=== PATIENT | male | born 1960 | race Caucasian/White ===

== ENCOUNTER 2018-03-04 13:44 | Emergency (ER) | payer MEDICARE, SELFPAY ==
[2018-03-04 14:21] VITALS: BP 119/73; PULSE 89; RESP 18; TEMP 36.7; O2SAT 98
[2018-03-04] MEDS: Lidocaine 5% Patch 1 PATCH TP (15:17)
[2018-03-04] MEDS: Ibuprofen 800 MG TAB PO (15:17)
[2018-03-04] MEDS: Acetaminophen 500 MG TAB 1000 MG PO (15:17)
--- NOTE | 2018-03-04 15:29 | DI.RAD_ITS ---
SYMPTOMS/DIAGNOSIS: LEFT CHEST PAIN, LOWER RIB PAIN CHEST X-RAY, PA AND LATERAL: No priors. The heart size and pulmonary vasculature are within normal limits. The lungs are clear. No effusions or pneumothoraces are identified. No definite fractures identified. There is a lucency seen through the posterior aspect of the left 9th rib, which may be due to overlying shadows. Mild degenerative changes are seen in the spine. IMPRESSION: No definite acute pulmonary process. Please see the above discussion for complete details.
--- NOTE | 2018-03-04 15:51 | DI.VRAD_ITS ---
EXAM: XR Chest, 2 Views EXAM DATE/TIME: 03/04/2018 3:26 PM CLINICAL HISTORY: 57 years old, male; Pain; Chest pain; Left-sided chest pain; Patient HX: Left chest pain, lower rib pain TECHNIQUE: XR of the chest, 2 views. COMPARISON: No relevant prior studies available. FINDINGS: Lungs: Unremarkable. No consolidation. Pleural space: Unremarkable. No pleural effusion. No pneumothorax. Heart/Mediastinum: Unremarkable. No cardiomegaly. Bones/joints: There may be nondisplaced fracture of the posterior left ninth rib. IMPRESSION: There may be nondisplaced fracture of the posterior left ninth rib. Dictated and Authenticated by: Olya Herring MD. Ordering:CAROLINA ELLINGTON MD
--- NOTE | 2018-03-04 16:53 | ED.GENADUL_ITS ---
Discharge Plan Disposition Patient Disposition: HOME Condition: Good Discharge Details Chief Complaint: Chest/Rib Clinical Impression: Fracture of rib Primary Care Provider: Armani Samuels ED Provider: Oneil Talbot Home Meds and New Rx's Prescriptions: New acetaminophen [Mapap Extra Strength] 500 MG tablet 1,000 mg PO Q6H 5 Days Qty: 60 RF: 0 lidocaine [Lidoderm] 1 PATCH patch 1 ea Topical Q24H Qty: 4 RF: 0 ibuprofen [Motrin IB] 200 MG tablet 600 mg PO Q6H 5 Days Qty: 60 RF: 0 Discharge Instructions Instructions: Rib Fracture (ED) Additional Instructions: Please take the Tylenol, Motrin and Lidoderm patches as directed. You have a small fracture over your left ninth rib. Please use the incentive spirometer as directed if you notice any worsening of your symptoms, or any new symptoms such as vomiting, diarrhea, fever, chills, shortness of breath, chest pain, numbness, weakness, or fainting , please return immediately to the emergency department for reevaluation. Please follow up with your primary care provider as soon as possible for reassessment and reevaluation. As always, it was a pleasure participating in your medical care today. Referrals: Armani Samuels [Primary Care Provider] - Discharge Data Discharge Date/Time-TO BE ENTERED AT DEPARTURE: 03/04/18 17:15 Medical Decision Making This is a pleasant 57-year-old male who presents with 3 weeks of left rib pain after falling and landing on his left ribs. Physical exam demonstrated no red flags concerning for pneumothorax, paradoxical rib movements , or large hematoma. Some subjective tenderness on palpation of the left lower lateral ribs. No tenderness in the abdomen, no tenderness over the spleen or kidneys. No abdominal distention. Vital signs are normal, the patient shows no signs of tachycardia, or low volume. No signs of anemia on exam. Bedside portable E FAST exam was performed and demonstrated no evidence of free fluid in the abdominal region. X-ray does show evidence of a nondisplaced fracture of the posterior left ninth rib. A Lidoderm patch was placed, with the addition of Tylenol and Motrin the patient had notable improvement of his symptoms. With no signs of hemodynamic instability, no ultrasound findings suggestive of an intra-abdominal bleed, no evidence of significant splenic injury on bedside ultrasound, and a benign appearing nondisplaced rib fracture and pain that is well controlled with Lidoderm patch and Tylenol Motrin I feel he can be safely discharged home. We did give the patient an incentive spirometer, and instructed him on how to use it and what volumes he needed to attained, he did this well. The patient's current clinical picture is inconsistent with any significant abdominal or pulmonary trauma, and I feel he can be discharged. I have extensively reviewed the treatment plan and discharge instructions with the patient. I have addressed all patient concerns at this time. The patient was made aware of what symptoms to monitor for that would warrant a return to the emergency department. Discussed the plan with the patient, they demonstrate verbal understanding and agreement with our assessment and plan at this time. FINDINGS: Lungs: Unremarkable. No consolidation. Pleural space: Unremarkable. No pleural effusion. No pneumothorax. Heart/Mediastinum: Unremarkable. No cardiomegaly. Bones/joints: There may be nondisplaced fracture of the posterior left ninth rib. IMPRESSION: There may be nondisplaced fracture of the posterior left ninth rib. Dictated and Authenticated by: Olya Herring MD. E-FAST Exam type: Diagnostic Indication for exam: Blunt trauma Views obtained: hepatorenal, perisplenic, suprapubic, pericardial, R lung, L lung Findings and interpretations: all views were adequate. No abdominal free fluid or pericardial fluid seen. Normal lung sliding, normal sea shore sign, no bar code sign indicating no pneumothorax. The patient tolerated the procedure well and there were no complications. HPI General Date/Time Provider Initiated Documentation: 03/04/18 15:02 . HPI Narrative: This is a pleasant 57-year-old male with no significant past medical history per the patient who presents today for evaluation of left rib pain. Patient states that 3 weeks ago he fell from a height of 4-5 feet, and landed on the soft ground onto his left ribs. Since then he has had mild pain in his left lateral ribs. It is worsened with movement and palpation, improved with Tylenol and Motrin. He denies any significant cough, fever or chills. He denies any other trauma. He denies any hemoptysis, abdominal pain, abdominal distention, vomiting or diarrhea. He is not on any blood thinners. He denies any other complaints at this time. He denies any recent surgeries. He denies any IV or illicit drug use Related Data Home Medications Medication Instructions Recorded Confirmed acetaminophen [Mapap Extra 1,000 mg PO Q6H 5 Days #60 tab 03/04/18 Strength] ibuprofen [Motrin Ib] 600 mg PO Q6H 5 Days #60 tab 03/04/18 lidocaine [Lidoderm] 1 ea TOPICAL Q24H #4 patch 03/04/18 Previous Rx's Medication Instructions Recorded acetaminophen [Mapap Extra 1,000 mg PO Q6H 5 Days #60 tab 03/04/18 Strength] ibuprofen [Motrin Ib] 600 mg PO Q6H 5 Days #60 tab 03/04/18 lidocaine [Lidoderm] 1 ea TOPICAL Q24H #4 patch 03/04/18 Allergies Allergy/AdvReac Type Severity Reaction Status Date / Time dust Allergy Mild Itching Uncoded 03/04/18 14:21 hay Allergy Mild Itching Uncoded 03/04/18 14:21 General Stated Complaint: Chest/Rib BENJAMÍN: 4 Review of Systems Review of Systems All systems reviewed & are unremarkable except as noted in HPI and below PFSH Social History Smoking/Tobacco Use Status: Never Exam Narrative Exam Narrative: 1.Const: Well-nourished, Well-developed, appearing stated age 2.Eyes: PERRL, no conjunctival injection, and symmetrical lids. 3.ENT: Atraumatic external nose and ears. Moist MM. Neck: Symmetric, trachea midline, No thyromegaly. 4.CVS: +S1/S2, No murmurs or gallops. Peripheral pulses 2+ and equal in all extremities. Brisk capillary refill in all extremities. 5.RESP: Unlabored respiratory effort. Clear to auscultation bilaterally. No wheezes rales or rhonchi. Minimal subjective tenderness on palpation of the left lateral ribs. No significant deformity. No paradoxical movement airway clear, no obstructions. No abrasions or ecchymosis. Chest movement symmetric with respirations. No chest wall tenderness. Trachea midline. No crepitus. No step offs. No paradoxical movements. Breath sound symmetric. No Sucking chest wounds. No clinical evidence of significant chest trauma. 6.GI: Soft, nondistended, nontender. Bowel tones normoactive. No masses or organomegaly. No ecchymosis or abrasions. No periumbilical ecchymosis or seatbelt sign. No flank or CVA tenderness. No clinical signs of significant trauma.No clinical evidence of significant abdominal trauma. 7.MSK: Normocephalic/Atraumatic, Extremities w/o deformity or ttp No cyanosis or clubbing, Normal movement of all extremities 8.Skin: Warm, Dry. No rashes or lesions. 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 Sensation grossly intact, no focal neurologic deficits. 10.Psych: (AAO) x3. Appropriate mood and affect Course Vital Signs Temperature 36.7 C 03/04/18 14:21 Pulse 89 03/04/18 14:21 Respiratory Rate 18 03/04/18 14:21 Blood Pressure 119/73 03/04/18 14:21 Pulse Oximetry 98 03/04/18 14:21 Temperature 36.7 C 03/04/18 14:21 Temperature Source Oral 03/04/18 14:21 Pulse 89 03/04/18 14:21 Respiratory Rate 18 03/04/18 14:21 Respiratory Effort 03/04/18 14:21 Blood Pressure 119/73 03/04/18 14:21 Blood Pressure Position Sitting 03/04/18 14:21 Pulse Oximetry 98 03/04/18 14:21 Oxygen Delivery Method Room Air 03/04/18 14:21 Oxygen Flow Rate 0 03/04/18 14:21 Pain Level 8 03/04/18 14:21
== END 2018-03-04 17:15 | disposition home or self-care (01) ==
PROVIDERS: Emergency Provider Student in an Organized Health Care Education/Training Program; PCP Family Medicine
DX: S22.32XA Fracture of one rib, left side, initial encounter for closed fracture (principal); W17.89XA Other fall from one level to another, initial encounter
CPT/HCPCS: 99283; 71046